=== PATIENT | male | born 1965 | race African-American/Black ===

== ENCOUNTER → 2020-04-02 | Outpatient (CLI) | payer OTHER, BC ==
[~2020-04-02] MED LIST: KEFLEX500 MG PO
== END ==
LOC: LAB 12:16
PROVIDERS: ATTEND Nurse Practitioner
DX: R50.9 Fever, unspecified (principal); R11.2 Nausea with vomiting, unspecified; M79.10 Myalgia, unspecified site; Z20.828 Contact with and (suspected) exposure to other viral communicable diseases

== ENCOUNTER → 2020-05-07 | Outpatient (CLI) | payer OTHER, BC | LOC: RAD 08:55 | PROVIDERS: ATTEND Family Medicine | DX: M16.11 Unilateral primary osteoarthritis, right hip (principal); M25.851 Other specified joint disorders, right hip; R07.9 Chest pain, unspecified ==